=== PATIENT | male | born 2000 | race Hispanic/Latino ===

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

== ENCOUNTER 2022-04-08 20:38 | Emergency (ER) | payer SELFPAY ==
[2022-04-08] MEDS ORDERED: diphenhydrAMINE 25 MG CAP ONE (22:26)
== END 2022-04-08 22:29 | disposition home or self-care (01) ==
LOC: ERS 20:38
DX: T63.441A Toxic effect of venom of bees, accidental (unintentional), initial encounter (principal); F17.210 Nicotine dependence, cigarettes, uncomplicated
CPT/HCPCS: 99282